=== PATIENT | male | born 1945 | race Caucasian/White ===

== ENCOUNTER 2023-10-27 10:57 | Day surgery (SDC) | payer MEDICARE ==
[2023-10-22 15:12] LABS: BASOPHILS # (AUTO) 0.1 X10'3 (0-0.2); BASOPHILS % (AUTO) 0.9 % (0-1); EOSINOPHILS # (AUTO) 0.4 X10'3 (0-0.9); EOSINOPHILS % (AUTO) 5.3 % (0-6); LYMPHOCYTES # (AUTO) 1.6 X10'3 (1.1-4.8); LYMPHOCYTES % (AUTO) 21.8 % (21-51); MEAN CORPUSCULAR HEMOGLOBIN 31.6 PG (27.0-31.0); MEAN CORPUSCULAR HGB CONC 34.7 g/dL (33.0-36.5); MEAN CORPUSCULAR VOLUME 91.2 FL (78-98); MEAN PLATELET VOLUME 7.3 FL (7.4-10.4); MONOCYTES # (AUTO) 0.8 X10'3 (0-0.9); MONOCYTES % (AUTO) 10.3 % (2-12); NEUTROPHILS # (AUTO) 4.6 X10'3 (1.8-7.7); NEUTROPHILS % (AUTO) 61.7 % (42-75); PRE OP HEMATOCRIT 41.9 % (42.0-52.0); PRE OP HEMOGLOBIN 14.5 g/dL (14.0-17.9); PRE OP PLATELET COUNT 271 X10'3 (140-440); PRE OP WHITE BLOOD COUNT 7.4 10'3 (4.8-10.8); RED CELL DISTRIBUTION WIDTH 14.3 % (11.5-14.5)
[2023-10-22 16:28] LABS: ALBUMIN 2.9 G/DL (3.4-5.0); ALBUMIN/GLOBULIN RATIO 0.6 (1.1-1.5); ALKALINE PHOSPHATASE 146 IU/L (46-116); CALCIUM 8.4 MG/DL (8.5-10.1); CHLORIDE 107 MMOL/L (99-107); PRE OP ANION GAP 2 (8-16); PRE OP AST 16 U/L (10-37); PRE OP BILIRUB, TOTAL 0.6 MG/DL (0.0-1.0); PRE OP GLUCOSE 89 MG/DL (70-104); PRE OP POTASSIUM 4.2 MMOL/L (3.4-5.1); PRE OP SODIUM 138 MMOL/L (135-145); TOTAL CARBON DIOXIDE 28.6 MMOL/L (24-32); TOTAL PROTEIN 7.4 G/DL (6.4-8.2)
[2023-10-22 16:32] LABS: BLOOD UREA NITROGEN 20 MG/DL (7-18); BUN/CREATININE RATIO 13.9 (10.0-20.0); CREATININE 1.44 MG/DL (0.60-1.10); PRE OP ALT 27 U/L (30-65); eGFR 48 ML/MIN
[~2023-10-27] VITALS: Ht 170.2 cm; Wt 72.6 kg
[2023-10-27] VITALS (13 sets, daily range): BP systolic 119–184; BP diastolic 68–98; PULSE 62–78; RESP 14–21; TEMP 98.3; O2SAT 89–96
[2023-10-27] MEDS: cefazolin 2gm/D5W 100mL 100 ML IV ONE (05:30)
[~2023-10-27 10:57] MED LIST: ALBU8HFA INH; APIX2.5T PO; ASPI81TA52 PO; ATOR40TA72 PO; DOCUMENT DATE & TIME OF BETA-BLOCKER PO ONE; DONE-46 PO; HYDR12.55 PO; LISI10TA27 PO; METO-395 PO
[2023-10-27] MEDS: ringers solution, lacted 1,000 ML IV SCH ×2 (11:29→17:13)
[2023-10-27] MEDS: famotidine 20mg tablet PO ONE (11:29)
[2023-10-27] MEDS ORDERED: fentaNYL/PF 50MCG/1 ML 2ML syringe ONE (12:40)
[2023-10-27] MEDS ORDERED: sevoflurane 250ml liquid IH ONE (13:10)
[2023-10-27] MEDS ORDERED: ondansetron/PF 4mg/2ml inj IV PRN (13:20)
[2023-10-27] MEDS ORDERED: meperidine/PF 25mg/ml syringe IV PRN ×3 (13:20)
[2023-10-27] MEDS ORDERED: labetalol 20mg/4ml (5mg/ml) syringe IV PRN (13:20)
[2023-10-27] MEDS ORDERED: proCHLORperazine 10 MG/2 ml inj IV PRN (13:20)
[2023-10-27] MEDS ORDERED: morphine 4 MG/ML inj SYRINge IV PRN (13:20)
[2023-10-27] MEDS: BUPIVACAINE liposomal/PF 13.3 MG/ML vial IM ONE (14:06)
[2023-10-27] MEDS: LIDOcaine 1% (10mg/ml)w/preservative inj. 20ml MDV ONE (14:07)
[2023-10-27] MEDS: BUPIVAcaine/PF 2.5mg/ml (0.25%) 10ml vial ONE (14:07)
[2023-10-27] MEDS: BUPIVAcaine 2.5mg/ml inj 50ml vial (contains preservative) ONE (14:08)
[2023-10-27] MEDS: enalaprilat dihydrate 2.5mg/2ml vial IV PRN (15:30)
[2023-10-27] MEDS: morphine 2 MG/ML inj. syringe IV PRN (16:13)
[2023-10-27] MEDS: oxyCODONE/APAP 5-325mg tablet PO PRN (17:13)
[2023-10-28] MEDS ORDERED: CEPH-585 PO (10:35)
== END 2023-10-27 17:18 | disposition home or self-care (01) ==
LOC: PAS 10:57
PROVIDERS: ATTEND Surgery
DX: K43.0 Incisional hernia with obstruction, without gangrene (principal); K43.6 Other and unspecified ventral hernia with obstruction, without gangrene; D17.1 Benign lipomatous neoplasm of skin and subcutaneous tissue of trunk; I10 Essential (primary) hypertension; I25.119 Atherosclerotic heart disease of native coronary artery with unspecified angina pectoris; E78.5 Hyperlipidemia, unspecified; I48.91 Unspecified atrial fibrillation; K21.9 Gastro-esophageal reflux disease without esophagitis; G47.33 Obstructive sleep apnea (adult) (pediatric); I25.2 Old myocardial infarction; Z87.891 Personal history of nicotine dependence; Z86.73 Personal history of transient ischemic attack (TIA), and cerebral infarction without residual deficits; Z85.038 Personal history of other malignant neoplasm of large intestine; Z79.01 Long term (current) use of anticoagulants; Z79.82 Long term (current) use of aspirin; Z79.899 Other long term (current) drug therapy; Z90.49 Acquired absence of other specified parts of digestive tract; Z95.1 Presence of aortocoronary bypass graft; Z95.4 Presence of other heart-valve replacement; Z98.890 Other specified postprocedural states; Z88.2 Allergy status to sulfonamides; Z88.8 Allergy status to other drugs, medicaments and biological substances; Z80.0 Family history of malignant neoplasm of digestive organs; Z82.3 Family history of stroke; Z82.49 Family history of ischemic heart disease and other diseases of the circulatory system; Z82.61 Family history of arthritis
CPT/HCPCS: 22903; 36415; 49594; 64488; 80053; 82948; 85025; A4215; A4615; A4618; C1781; C9290; J0131; J0690; J1100; J2001; J2250; J2270; J2405; J2704; J2710; J3010; J3490; J7030; J7120; Z7506; Z7508; Z7512; Z7610

== ENCOUNTER 2023-10-28 09:02 | Emergency (ER) | payer MEDICARE ==
[~2023-10-28] VITALS: Ht 170.2 cm; Wt 75.3 kg
[~2023-10-28 09:02] MED LIST changes: -DOCUMENT DATE & TIME OF BETA-BLOCKER PO ONE
[2023-10-28] MEDS: LidoCAINE 2% Topical Jelly 11mL syringe (UROJET) TOP ONE (10:15)
[2023-10-28 10:20] VITALS: BP 134/77; PULSE 77; RESP 16; TEMP 97.1; O2SAT 96
[2023-10-28] MEDS ORDERED: CEPH-585 PO (10:35)
== END 2023-10-28 11:20 | disposition home or self-care (01) ==
LOC: ER 09:02
DX: R33.9 Retention of urine, unspecified (principal); Z88.2 Allergy status to sulfonamides; Z79.899 Other long term (current) drug therapy; Z79.82 Long term (current) use of aspirin
CPT/HCPCS: 51702; 99284; A4314